=== PATIENT | female | born 1955 | race Caucasian/White ===

== ENCOUNTER 2017-01-31 05:21 | Day surgery (SDC) | payer BC ==
[2017-01-27 16:58] VITALS: Ht 167.6 cm; Wt 91.0 kg
[~2017-01-31] VITALS: Ht 167.6 cm; Wt 91.0 kg
[2017-01-31] VITALS (8 sets, daily range): BP systolic 133–147; BP diastolic 58–85; PULSE 74–91; RESP 14–25
[~2017-01-31 05:21] MED LIST: HTN; [UNRECOGNIZED DRUG - OTHER]; [UNRECOGNIZED DRUG - REMARK]
[2017-01-31] MEDS ORDERED: ROPIVACAINE 0.5 % 30 ML VIAL ONE (07:09)
[2017-01-31] MEDS ORDERED: BUPIVACAINE 0.5% (SDV) 30 ML INJ ONE (07:09)
[2017-01-31] MEDS ORDERED: NEOMYC/POLYMYX/BACIT 30 GM OINT ONE (07:09)
[2017-01-31] MEDS ORDERED: MELO-216 PO (07:16)
[2017-01-31] MEDS ORDERED: CYCL-319 PO (07:16)
[2017-01-31] MEDS ORDERED: FAMO20TA18 PO (07:16)
[2017-01-31] MEDS ORDERED: vit d PO (07:16)
[2017-01-31] MEDS ORDERED: GABA400C14 PO (07:16)
[2017-01-31] MEDS ORDERED: MONT10TA24 PO (07:16)
[2017-01-31] MEDS ORDERED: POT CHLORIDE PO (07:16)
[2017-01-31] MEDS ORDERED: SPIR100T31 PO (07:16)
[2017-01-31] MEDS ORDERED: CLON2TAB3 PO (07:16)
[2017-01-31] MEDS ORDERED: FURO40TA4 PO (07:16)
[2017-01-31] MEDS ORDERED: CITA10SO GTB (07:16)
[2017-01-31] MEDS ORDERED: LEVO150T67 PO (07:16)
[2017-01-31] MEDS ORDERED: FENTAnyl 50 MCG/ML VIAL ONE (07:32)
[2017-01-31] MEDS ORDERED: PROVENTIL HFA 6.7GM INHALER ONE (07:33)
--- NOTE | 2017-01-31 07:33 | HPN ---
Date/Time of Note Date/Time of Note DATE: 01/31/17 TIME: 07:33 Interval H&P Admission Note Pt. seen H&P reviewed: No system changes DENZEL BOATENG MD Jan 31, 2017 07:33
[2017-01-31] MEDS ORDERED: morphine 2 MG INJ IV PRN (08:00)
[2017-01-31] MEDS ORDERED: MEPERIDINE 25 MG INJ IV PRN (08:30)
[2017-01-31] MEDS ORDERED: DIPHENHYDRAMINE 50 MG INJ IV PRN (08:30)
[2017-01-31] MEDS ORDERED: FENTAnyl 50 MCG/ML VIAL IV PRN ×2 (08:30)
[2017-01-31] MEDS ORDERED: HYDROmorphONE (0.2 MG/ML) 10ML SYG IV PRN ×2 (08:30)
[2017-01-31] MEDS ORDERED: ONDANSETRON 4 MG INJ IV PRN (08:30)
[2017-01-31] MEDS ORDERED: METOCLOPRAMIDE 10 MG INJ IV PRN (08:30)
[2017-01-31] MEDS ORDERED: SUGAMMADEX SODIUM 200 MG/2 ML VIAL IV ONE (08:36)
[2017-01-31] MEDS ORDERED: ROCURONIUM 50 MG INJ ONE (08:43)
[2017-01-31] MEDS ORDERED: PROPOFOL 20 ML ONE (08:43)
[2017-01-31] MEDS ORDERED: SUCCINYLCHOLINE CHLORIDE 100 MG/5 ML SYG IV ONE (08:43)
[2017-01-31] MEDS ORDERED: LIDOCAINE 2% (SDV) 5 ML INJ ONE (08:43)
[2017-01-31] MEDS ORDERED: CEFAZOLIN 1 GM INJ ONE (08:43)
[2017-01-31] MEDS: HYDROmorphONE (0.2 MG/ML) 10ML SYG IV PRN ×3 (08:53→09:09)
--- NOTE | 2017-01-31 09:07 | OPR ---
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 The patient has complained of having catching, clicking and locking symptoms over the medial aspect of the knee with no relief with physical therapy or anti- inflammatory. Patient has decided to proceed with surgery. RISK NOTE: Patient was explained the risks and benefits of the surgery in the patients [place] language, including not limited to infection, bleeding, loss of limb, loss of life, need for future surgery, risk of anesthesia, risk of injury to the blood vessels and nerves, ligaments or tendons, and risk of deep vein thrombosis. Patient understood these risks and wished to proceed with the surgery. Procedure Description The correct operative site was noted and marked in the preoperative holding area. The patient was then brought back into the operative theater, placed supine on the operative table. Right knee was examined under anesthesia. Range of motion was 0-120. There is no varus or valgus or anterior or posterior instability. There is crepitus noticed at the patellofemoral joint. Tourniquet was then placed on the operative extremity thigh non-sterilely. Patient was then given preoperative antibiotics and then prepped and draped in normal sterile fashion. A timeout was taken and all parties in the room agreed it was the correct patient, correct extremity and correct procedure. 10 cc of 0.25% Marcaine without epi was injected into the anteriorlateral and anteriormedial portal sites prior to incision. Standard anterior lateral portal was created and the knee joint was entered with a blunt tipped trocar, followed by 30 arthroscope. Inflow was achieved with a pump and the pressure maintained at approximately 50 mmHg. A routine arthroscopic surgery was performed. Suprapatella pouch was unremarkable. The undersurface of the patella showed advanced grade 1 -2 chondromalacia The medial and lateral gutters were visualized. There were no loose bodies seen. There is an inflamed hypertrophic plica noted in the anterior and superior medial aspect of the knee. The popliteus hiatus was entered and was normal. Lateral compartment was entered and grade 1 chondromalacia was seen on the lateral tibial plateau and femoral condyle. There was found tearing of the mid body and posterior horn of the lateral meniscus. Using both a motorized shaver and basket biters the meniscus was smoothed to a firm stable meniscal rim with care to maintain the peripheral meniscal rim. A probe was then reintroduced and this was carefully probed and found to be stable meniscus now. A chondroplasty was performed along the weightbearing aspect of the lateral femoral condyle medial tibial plateau with a [employer] werewolf device. Scope was then brought into the intercondylar notch and an anteromedial portal was made. Shaver was brought into the knee and small amount of fat pad and scar tissue was initially gently debrided. The anterior cruciate ligament was intact and probed. The knee was brought into a valgus position and the medial compartment was entered. A chondral loose body was found to be floating around in the medial compartment and was removed. This measured approximately 1.0 cm in total dimension. The articular surface of the medial femoral condyle showed grade 2/ 3 with exposed bone over the chondromalacia and and medial tibial plateau revealed diffuse grade 4 chondromalacia medial portion of the medial tibial plateau.. There was a degenerative posterior horn medial meniscus tear extending to the midbody that was associated with a cleavage tear that visualized and debrided gently with a motorized shaver and basket forceps, the posterior horn demonstrated a degenerative tear and fibrillation pattern. The motorized shaver and basket biters were used to smooth the remaining meniscal rim, with care to maintain the peripheral meniscal rim. A probe was introduced and this was carefully probed and was found to be stable. Chondroplasty was then carried out along the weightbearing aspect of the medial femoral condyle, medial tibial plateau, taking care to remove only loose articular cartilage debris and preserve functional articular cartilage. Then using a [employer] werewolf device a final chondroplasty knee a meniscal trimming was performed. The lateral compartment was reentered and the loose chondral debris was debrided with motorized shaver. Attention was then directed back to the patella femoral joint and a chondroplasty was carried out along the weightbearing aspect of the trochlea and undersurface of the patella to again remove loose debris and maintain functional active articular cartilage. The knee was then irrigated with additional 2 L of lactated Ringers solution. Excess fluid was then drained. Range of motion was then attempted showing 0- 125 degrees of motion The portal sites were closed with 4-0 Monocryl and Steri-Strips and dressed with Xeroform and triple antibiotic ointment. The knee was then injected with 20 cc of 0.5% plain ropivacaine. A dry sterile dressing was then applied followed by a bulky soft bandage followed by an Freddy wrap. At the completion of the surgery patient had palpable pulses, soft arms and brisk cap refill. The patient tolerated the procedure well and was taken to the PACU without any complications. All sponge and needle counts were correct. Patient will begin pain medicine and 48 hours of antibiotics as well as aspirin 81 mg for the duration of 4 weeks postoperatively ARIE BOATENG MD Jan 31, 2017 09:07
[2017-01-31] MEDS ORDERED: OXYCODONE/ACETAMINOPHEN (10/325) TAB PO ONE (10:00)
== END 2017-01-31 10:35 | disposition home or self-care (01) ==
LOC: SDS 05:21
PROVIDERS: ATTEND Orthopaedic Surgery
DX: M23.221 Derangement of posterior horn of medial meniscus due to old tear or injury, right knee (principal); M23.251 Derangement of posterior horn of lateral meniscus due to old tear or injury, right knee; M94.261 Chondromalacia, right knee; M23.41 Loose body in knee, right knee; E66.9 Obesity, unspecified; Z68.32 Body mass index [BMI] 32.0-32.9, adult
CPT/HCPCS: 29880; J0690; J1170; J2405; J2795; J3010; Z7512; Z7610